=== PATIENT | female | born 1980 | race Two or more races ===

== ENCOUNTER 2020-09-19 23:57 | Emergency (ER) | payer OTHER ==
[~2020-09-19] VITALS: Ht 162.6 cm; Wt 62.1 kg
[~2020-09-19 23:57] MED LIST: ORTHO TRI-7 DAYSX 3
[2020-09-20] MEDS ORDERED: TOPROL XL25 M1 PO (00:18)
[2020-09-20] MEDS ORDERED: PEPCID40 MG PO ×2 (04:51→04:53)
[2020-09-20] MEDS ORDERED: KEFLEX500 MG PO ×2 (04:51→04:53)
[2020-09-20] MEDS ORDERED: LEVSIN/SL0.125 MG SL ×2 (04:51→04:53)
== END 2020-09-20 05:18 | disposition home or self-care (01) ==
LOC: ER 23:57
DX: R10.11 Right upper quadrant pain (principal); Z03.818 Encounter for observation for suspected exposure to other biological agents ruled out

== ENCOUNTER 2020-09-29 13:42 | Emergency (ER) | payer OTHER ==
[~2020-09-29] VITALS: Ht 152.4 cm; Wt 62.1 kg
[~2020-09-29 13:42] MED LIST changes: +KEFLEX500 MG PO; +LEVSIN/SL0.125 MG SL; +PEPCID40 MG PO; +TOPROL XL25 M1 PO
== END 2020-09-29 23:39 | disposition home or self-care (01) ==
LOC: ER 13:42
DX: K82.8 Other specified diseases of gallbladder (principal); R10.84 Generalized abdominal pain; Z03.818 Encounter for observation for suspected exposure to other biological agents ruled out

== ENCOUNTER 2020-11-21 07:44 | Outpatient (CLI) | payer OTHER | END 2020-11-21 08:03 | disposition home or self-care (01) | LOC: NUCLEAR 07:44 | PROVIDERS: ATTEND Internal Medicine Cardiovascular Disease | DX: I11.9 Hypertensive heart disease without heart failure (principal); I25.118 Atherosclerotic heart disease of native coronary artery with other forms of angina pectoris | CPT/HCPCS: 78452; 93017; A9500 ==

== ENCOUNTER 2021-09-13 21:50 | Emergency (ER) | payer OTHER ==
[~2021-09-13] VITALS: Ht 162.6 cm; Wt 62.1 kg
== END 2021-09-14 03:18 | disposition home or self-care (01) ==
LOC: ER 21:50
DX: M94.0 Chondrocostal junction syndrome [Tietze] (principal); R07.89 Other chest pain; F41.8 Other specified anxiety disorders

== ENCOUNTER 2024-07-04 14:26 | Emergency (ER) | payer OTHER ==
[~2024-07-04] VITALS: Ht 160 cm; Wt 68.9 kg
[2024-07-04] MEDS ORDERED: CEFTRIAXONE SODIUM 2,000 MG VIAL IV ONE (15:00)
[2024-07-04] MEDS ORDERED: TAMSULOSIN HCL 0.4 MG CAP PO ONE ×2 (15:00→15:02)
[2024-07-04] MEDS ORDERED: KETOROLAC TROMETHAMINE 60 MG VIAL IM ONE ×2 (15:00→15:03)
[2024-07-04] MEDS ORDERED: CEFTRIAXONE SODIUM 2,000 MG VIAL ONE (15:03)
[2024-07-04 15:36] LABS: HEMATOCRIT 37.9 % (36.0-45.00); HEMOGLOBIN 12.8 g/dL (12.0-15.00); MEAN CELL VOLUME 87.5 fL (80.00-100.00); MEAN CORPUSCULAR HEMOGLOBIN 29.7 pg (27.00-32.0); MEAN CORPUSCULAR HGB CONC 33.9 g/dl (32.0-36.0); PLATELET COUNT 247 K/uL (150-450); RED BLOOD COUNT 4.33 M/uL (4.00-6.00)
[2024-07-04 16:03] LABS: ALBUMIN 4.1 gm/dL (3.4-5.0); ALKALINE PHOSPHATASE 77 U/L (50-136); ALT/SGPT 33 U/L (12-78); ANION GAP 11 (10.0-20.0); AST/SGOT 19 U/L (15-37); BILIRUBIN TOTAL 0.36 mg/dL (0.3-1.2); BLOOD UREA NITROGEN 13 mg/dL (7-18); BUN CREA RATIO 19 (7.0-25.0); CALCIUM 9.6 mg/dL (8.5-10.1); CARBON DIOXIDE 29 mEq/L (21-32); CHLORIDE 107 mmol/L (98-107); CREATININE SERUM 0.68 mg/dL (0.55-1.02); GFR 94.43; GLOBULINA 3.4 G/DL (2.4-3.5); GLUCOSE FASTING 97 mg/dL (65-100); OSMOLALITY SERUM 285 MOSM/KG (275-295); POTASSIUM 3.76 mEq/L (3.5-5.1); SODIUM 143 mmol/L (136-145); TOTAL PROTEIN 7.5 gm/dL (6.4-8.2)
[2024-07-04 16:04] LABS: HCG QUANTITATIVE < 1 mUI/mL (1-3)
[2024-07-04 16:39] LABS: URINE APPEARANCE Clear; URINE BILIRRUBIN Negative (NEGATIVE); URINE BLOOD Negative; URINE COLOR Yellow; URINE GLUCOSE Negative (NEGATIVE); URINE KETONE Negative (NEGATIVE); URINE LEUKOCYTE Negative; URINE NITRATE Negative; URINE PROTEIN Negative (NEGATIVE); URINE UROBILINOGEN 0.2 E.U./dl
[2024-07-04 16:42] LABS: URINE BACTERIA 33.9 uL (0.0-1933)
[2024-07-04 16:47] LABS: URINE EPITHELIAL CELLS 1.3 uL (0.0-38.8); URINE RBC 0.9 uL (0.0-20.8)
== END 2024-07-04 18:59 | disposition home or self-care (01) ==
LOC: ER 14:27
PROVIDERS: General Practice
DX: N39.0 Urinary tract infection, site not specified (principal); R10.9 Unspecified abdominal pain